=== PATIENT | male | born 1950 | race Two or more races ===

== ENCOUNTER 2016-08-11 09:33 | Day surgery (SDC) | payer OTHER, MEDICARE ==
[2016-07-17 13:37] VITALS: BMI 23.5
[2016-08-11] MEDS: TROPICAMIDE 1% OPHTH SOLN 15 ML BOTTLE ONE ×5 (10:00→10:20)
[2016-08-11] MEDS: PHENYLEPHRINE 2.5% OPHTH SOLN 15 ML BOTTLE ONE ×5 (10:00→10:20)
[2016-08-11] MEDS: GENTAMICIN SULFATE 0.3% OPHTHALMIC (EYE DROPS) 5ML BOTTLE ONE ×5 (10:00→10:20)
[2016-08-11] MEDS: CYCLOPENTOLATE HCL 1% OPHTH SOLN 2 ML BOTTLE ONE ×5 (10:00→10:20)
[2016-08-11] MEDS: FLURBIPROFEN 0.03% OPHTH SOLN 2.5 ML BOTTLE ONE ×5 (10:00→10:20)
[2016-08-11 10:02] VITALS: TEMP 98.1
[2016-08-11] MEDS ORDERED: ACETAMINOPHEN 325 MG TABLET (FP) PO PRN (10:19)
[2016-08-11] MEDS ORDERED: PROPOFOL 20 ML ONE (11:00)
[2016-08-11] MEDS ORDERED: MIDAZOLAM HCL 2 MG/2 ML SINGLE DOSE VIAL ONE (11:09)
[2016-08-11 12:45] VITALS: BP 141/81; PULSE 76
[2016-08-11] MEDS ORDERED: LACTATED RINGERS SOLUTION 1,000 ML IV SCH (13:00)
--- NOTE | 2016-08-12 15:15 | OP ---
DATE OF OPERATION: 08/11/2016 DATE OF DICTATION: 08/11/2016 TITLE OF PROCEDURE: Planned extracapsular cataract extraction and phacoemulsification, insertion of posterior chamber lens implant in the right eye. SURGEON: Lb Moore M.D. BOILERHOUSE MECHANIC SURGEON: Lb Moore M.D. ANESTHESIA: Local standby. NURSE ALL PURPOSE CLERK: Gloria Aguilar ANESTHESIOLOGIST: Nikita Lynne M.D. COMPLICATIONS: None. PREOPERATIVE DIAGNOSIS: Cataract of the right eye, advanced. POSTOPERATIVE DIAGNOSIS: Cataract of the right eye, advanced. FINDINGS OF PROCEDURE: After successful peribulbar anesthesia was given to the right eye, the patient was prepped and draped in the usual manner to expose the right eye. The operating room microscope brought into position over the eye, lid speculum inserted. Attention was focused on the superior limbal area. It should be noted the Tegaderm strips were used as well as the lid speculum to keep the lids open. Viscoat was applied to the surface of the cornea for clarity and for moisture and to prevent the cornea from becoming too dry. Attention was focused to the superior limbal area where superior fornix based flap was fashioned for 12 mm using Henrietta scissors and .12_ forceps and hemostasis achieved with electrocautery. A limbal groove was fashioned for 3 mm with a crescent blade dissecting anterior and to clear cornea. A 3 mm blade was used to enter the anterior chamber, and then under Viscoat a 360-degree anterior capsulotomy was performed and the anterior lens capsular flap removed from the eye, and then phacoemulsification of this very hard nucleus was then done in approximately 2 minutes' time using a stop and chop method, and this was followed by irrigation and aspiration of all cortical material, leaving an intact posterior capsule and a red reflex present. Provisc was injected in the posterior chamber to deepen the posterior capsule, and then the implant was inspected and found to be free of defects, debris and flaws. It was folded, placed in the Provisc-filled cartridge, the cartridge was placed in the injector, and the implant was injected into the eye such that the inferior haptic was placed in the inferior capsular bag and superior haptic into the superior fornix of the capsular bag, rotating in horizontal position with a Sinskey hook. Provisc was aspirated out, replaced with Miochol, Miostat and BSS, and the wounds were closed with a single interrupted _10-O_nylon suture. Tested for leakage and none was found. Conjunctival tenon flap was then reapproximated. At this point the implant was fixated in the capsular bag, centrally located with a round pupil intact, posterior capsule and red reflex present. There was normotension present in the right eye. Topical Betoptic S and Maxitrol ophthalmic suspensions were placed as was bacitracin, polymyxin B, ophthalmic ointment, and the Tegaderm strips and the lid speculum were removed from the lids, the lids were closed, and a patch and shield placed on the eye. The patient was then discharged from the operating room into the recovery area in good condition, having tolerated the procedure well. LB MOORE M.D. [id number] MTDD
== END 2016-08-11 13:36 | disposition home or self-care (01) ==
LOC: FASU 09:33
PROVIDERS: ATTEND Ophthalmology
PROC: 08RJ3JZ Replacement of Right Lens with Synthetic Substitute, Percutaneous Approach (ICD-10-PCS; principal; 2016-08-11 11:09)
DX: H26.8 Other specified cataract (principal)

== ENCOUNTER 2016-09-08 09:24 | Day surgery (SDC) | payer OTHER, MEDICARE ==
[2016-09-03 09:48] VITALS: BMI 23.5
[2016-09-08] MEDS: PHENYLEPHRINE 2.5% OPHTH SOLN 15 ML BOTTLE ONE ×5 (09:50→10:10)
[2016-09-08] MEDS: TROPICAMIDE 1% OPHTH SOLN 15 ML BOTTLE ONE ×5 (09:50→10:10)
[2016-09-08] MEDS: CYCLOPENTOLATE HCL 1% OPHTH SOLN 2 ML BOTTLE ONE ×5 (09:50→10:10)
[2016-09-08] MEDS: GENTAMICIN SULFATE 0.3% OPHTHALMIC (EYE DROPS) 5ML BOTTLE ONE ×5 (09:50→10:10)
[2016-09-08] MEDS: FLURBIPROFEN 0.03% OPHTH SOLN 2.5 ML BOTTLE ONE ×5 (09:50→10:10)
[2016-09-08] MEDS ORDERED: ACETAMINOPHEN 325 MG TABLET (FP) PO PRN (10:39)
[2016-09-08] MEDS ORDERED: ACETYLCHOLINE 1:100 INTRA-OCUL 20 MG/2 ML KIT ONE (10:46)
[2016-09-08] MEDS ORDERED: PROPOFOL 20 ML ONE (10:55)
[2016-09-08] MEDS ORDERED: MIDAZOLAM HCL 2 MG/2 ML SINGLE DOSE VIAL ONE (10:55)
[2016-09-08 13:47] VITALS: TEMP 98.8
[2016-09-08 14:00] VITALS: BP 132/76; PULSE 64
--- NOTE | 2016-09-09 10:44 | OP ---
DATE OF OPERATION: 09/08/2016 TITLE OF PROCEDURE: Planned extracapsular cataract extraction, phacoemulsification, insertion of posterior chamber lens implant in the left eye. SURGEON: Lb Cosme M.D. JOINER HELPER SURGEON: Lb Cosme M.D. PREOPERATIVE DIAGNOSIS: Mature cataract, left eye. POSTOPERATIVE DIAGNOSIS: Mature cataract, left eye. ANESTHESIOLOGIST: Bryant Mojica D.O. ANESTHESIA: Local standby. COMPLICATIONS: None. FINDINGS AND PROCEDURE: After successful peribulbar anesthesia lid block, peribulbar anesthesia was given. The patient was prepped and draped in the usual manner to expose the left eye. The lid speculum was inserted and microscope brought into position over the eye. It should be noted that Tegaderm strips were also placed on the lashes. A speculum was inserted and attention was focused on the superior limbal area where a 12-mm foprnix based flap was fashioned with 0.12 forceps and Henrietta scissors, and then hemostasis achieved with electrocautery, and then this was followed by a 3- mm groove with a crescent blade dissecting anterior to clear cornea, and then a 3-mm blade used to enter the anterior chamber, and then under Viscoat, a 360- degree anterior capsulotomy was performed and the capsular leaflet removed from the eye. Using a bimanual technique with a side port incision, using a 15-degree blade, the nucleus was then phacoemulsified completely without complication in approximately 2 minutes' time followed by irrigation, aspiration of all cortical material, leaving an intact posterior capsule and a red reflex present. Provisc was injected in the posterior chamber to deepen the posterior capsule. Then the implant was inspected carefully and found to be free of defects or flaws. It was then folded, placed into the Provisc-filled cartridge. The cartridge was placed in the injector and the implant was injected into the eye such that the inferior haptic was in the inferior capsular bag and the superior haptic was placed in the superior capsular bag and rotated in the horizontal position with a Sinskey hook. Provisc was aspirated out, replaced with Miochol, Miostat and BSS. The wound was closed with a single interrupted 2-0 Ethilon suture and tested for leakage; none was found. Conjunctival tenon flap was reapproximated. At this point, the implant was fixated in the capsular bag centrally located with a round pupil intact, posterior capsule and a red reflex present. Topical Betoptic S and Maxitrol ophthalmic suspensions were placed as was bacitracin, polymyxin B, ophthalmic ointment, followed by removal of the Tegaderm strips and the lid speculum, the lids were closed, and a patch and shield placed on the eye. The patient was then discharged from the operating room into the recovery area in good condition, having tolerated the procedure well. Lane [id number] MTDD
== END 2016-09-08 12:45 | disposition home or self-care (01) ==
LOC: FASU 09:24
PROVIDERS: ATTEND Ophthalmology
PROC: 08RK3JZ Replacement of Left Lens with Synthetic Substitute, Percutaneous Approach (ICD-10-PCS; principal; 2016-09-08 11:13)
DX: H25.22 Age-related cataract, morgagnian type, left eye (principal)